=== PATIENT | male | born 1950 | race Caucasian/White ===

== ENCOUNTER 2023-03-25 09:51 | Emergency (ER) | payer MEDICARE, BC ==
[~2023-03-25] VITALS: Ht 180.3 cm; Wt 92.7 kg
[2023-03-25 10:10] VITALS: BP 135/84
[2023-03-25] MEDS ORDERED: SULF1TAB49 PO (10:38)
[2023-03-25] MEDS ORDERED: LIDOcaine 1% W/epiNEPHrine 1:100,000 20ml vial IJ ONE (10:40)
[2023-03-25] MEDS ORDERED: bacitracin 15gm ointment TP ONE (10:40)
== END 2023-03-25 12:25 | disposition home or self-care (01) ==
LOC: ER 09:51
DX: S81.812A Laceration without foreign body, left lower leg, initial encounter (principal); W18.40XA Slipping, tripping and stumbling without falling, unspecified, initial encounter; Y93.89 Activity, other specified; Y92.89 Other specified places as the place of occurrence of the external cause; Y99.8 Other external cause status
CPT/HCPCS: 12001; 12005; 99283; A6258; A6449